=== PATIENT | female | born 1945 | race Caucasian/White ===

== ENCOUNTER 2017-12-08 08:42 | Inpatient (IN) ==
--- NOTE | 2017-12-08 09:38 | Emergency Department Note ---
Disposition Clinical Impression: Hip fracture Qualifiers: Encounter type: initial encounter Fracture type: closed Laterality: left Qualified Code(s): S72.002A - Fracture of unspecified part of neck of left femur , initial encounter for closed fracture Disposition: Admitted As Inpatient Condition: Fair Fall HPI - General Chief Complaint: ED Fall Stated Complaint: fall Time Seen by Provider: 12/08/17 08:48 Source: patient Mode of arrival: EMS Limitations: no limitations Nursing Notes Reviewed: Yes Vital Signs Reviewed: Yes - History of Present Illness HPI Narrative: 72 year old female presents with fall injury. Patient stated she has history of mild left leg weakness for a while. She was still able to walk without help. She was tripped and fell on left side hip 2 hours ago from standing position. Patient could not stand up after the accident. When ambulance came and moved her, she complained of severe left hip pain, and back pain. She also complained of some left knee pain as well. Patient denied hit her head. Denied dizziness or lost consciousness prior to the accident. Patient denied headache, neck pain, chest pain, abdominal pain. Denied incontinency over urinating or bowel movement. Pt Subjective Complaint: fall Onset (ago): hour(s) (2) Fall From: standing, from height (distance) Fall Witnessed: no Place Fall Occurred: home Loss of Consciousness: none Prolonged Down Time?: no Symptoms Prior to Fall: none Location of injury: hip Location of injury - extremities: Left: hip, knee Severity: severe Severity scale (1-10): 9 Quality: dull Associated symptoms (after fall): Reports: denies - Related Data Home Medications Medication Instructions Recorded Confirmed Alendronate Sodium 70 mg PO MO 12/08/17 12/08/17 Escitalopram [Lexapro] 20 mg PO QPM 12/08/17 12/08/17 Megestrol Acetate [Megace] 40 mg PO BID 12/08/17 12/08/17 Mirtazapine [Remeron] 15 mg PO HS 12/08/17 12/08/17 Multivit-Min/FA/Lycopen/Lutein 1 tab PO DAILY 12/08/17 12/08/17 [Centrum Silver Tablet] Ranitidine HCl [Heartburn Relief] 150 mg PO BID 12/08/17 12/08/17 Solifenacin Succinate [Vesicare] 5 mg PO DAILY 12/08/17 12/08/17 Previous Rx's Medication Instructions Recorded Cefdinir [Omnicef] 300 mg PO BID #4 capsule 12/12/17 Enoxaparin [Lovenox] 30 mg SQ Q12HCO #23 syringe 12/12/17 Gabapentin [Neurontin] 600 mg PO BID #10 tablet 12/12/17 HYDROcodone/Acet 5/325 mg [[place] 2 tab PO Q6HR PRN 5 Days #20 tablet 12/12/17 5-325 mg] Allergies Allergy/AdvReac Type Severity Reaction Status Date / Time meperidine [From Demerol] Allergy Hives Verified 12/08/17 11:18 Penicillins Allergy Hives Verified 12/08/17 11:18 milk AdvReac Gastrointestinal Uncoded 12/08/17 11:18 Upset Constitutional: Denies: fever, chills, weakness, weight change Eyes: Denies: eye pain, eye discharge, vision change ENT ED: Denies: ear pain, throat pain, dental pain, hearing loss, epistaxis, congestion, dysphagia Cardiovascular: Denies: chest pain, palpitations, dyspnea on exertion, edema, syncope Respiratory: Denies: cough, dyspnea, wheezes, hemoptysis, stridor Gastrointestinal: Denies: abdominal pain, nausea, vomiting, diarrhea, constipation, hematemesis, melena, hematochezia Genitourinary: Denies: dysuria, frequency, hematuria, discharge Musculoskeletal: Reports: back pain, arthralgia (Back pain, left hip pain, left and knee pain). Denies: neck pain, myalgia Integumentary: Denies: rash, abrasion, lesions Neurological: Denies: headache, weakness, numbness, paresthesias, confusion, abnormal gait, vertigo Psychiatric: Denies: anxiety, depression, suicidal thoughts, homicidal thoughts , auditory hallucinations, visual hallucinations Endocrine: Denies: fatigue Hematological/Lymphatic: Denies: easy bleeding, easy bruising Allergic/Immunologic: Denies: facial swelling, urticaria Fall PMH - Past Medical History Medical history: Reports: GERD, thyroid disease, other Surgical history: Reports: no surgical history Psychiatric history: Reports: depression, 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 - Social History Smoking Status: Never smoker Alcohol use: Reports: none Drug use: Reports: none Physical Exam - General Limitations: no limitations General appearance: alert - Head Head exam: atraumatic, normocephalic, normal inspection - Eye Eye exam: Present: normal appearance, PERRL, EOMI - Expanded Eye Exam Pupils: Left: reactive - ENT ENT exam: normal exam, normal oropharynx, mucous membranes moist - Expanded ENT Exam External ear exam: Present: normal external inspection Mouth exam: Present: normal external inspection Teeth exam: Present: normal inspection Throat exam: Present: normal inspection - Neck Neck exam: Present: normal inspection, full ROM, trachea midline. Absent: tenderness - Chest Chest inspection: Present: normal inspection, symmetric chest wall rise - Respiratory Respiratory exam: Present: normal lung sounds bilaterally. Absent: respiratory distress, wheezes - Cardiovascular Cardiovascular exam: Present: regular rate, normal rhythm, normal heart sounds - Abdominal Exam Abdominal exam: Present: soft, Non-Tender. Absent: tenderness, distention, guarding, rebound, rigidity - Extremities Exam Extremities exam: Present: normal inspection, full ROM. Absent: tenderness, pedal edema - Expanded Upper Extremity Exam Shoulder exam: Present: normal inspection, full ROM Arm exam: Present: normal inspection, full ROM Elbow exam: Present: normal inspection, full ROM Forearm/Wrist exam: Present: normal inspection, full ROM Hand exam: Present: normal inspection, full ROM Vascular exam: Normal: capillary refill, radial pulse - Expanded Lower Extremity Exam Hip/Pelvis exam: Present: normal inspection, tenderness (left hip limited of ROM and tender to palpation). Absent: full ROM Upper leg exam: Present: normal inspection. Absent: tenderness Knee exam: Present: normal inspection, full ROM Lower leg exam: Present: normal inspection, full ROM Ankle exam: Present: normal inspection, full ROM Foot/toe exam: Present: normal inspection, full ROM Neurovascular/Tendon exam: Present: normal capillary refill. Absent: motor deficit, sensory deficit, tendon deficit - Back Exam Back exam: Present: normal inspection, full ROM, tenderness (lumbar spine tender to palpation) - Neurological Exam Neurological exam: Present: alert, oriented X3 - Expanded Neurological Exam Patient oriented to: Present: person, place, time Coma Scale Eye Opening: Spontaneous Coma Scale Motor Response: Obeys Commands Coma Scale Verbal Response: Oriented Coma Scale Total: 15 - Psychiatric Psychiatric exam: Present: normal affect, normal mood - Skin Skin exam: Present: warm, dry, intact, normal color Course Vital Signs Temperature 98.6 F 12/08/17 08:44 Pulse Rate 79 12/08/17 08:44 Respiratory Rate 18 12/08/17 08:44 Blood Pressure 138/66 12/08/17 08:44 O2 Sat by Pulse Oximetry 91 12/08/17 08:44 Temperature 98.4 F 12/12/17 12:10 Pulse Rate 75 12/12/17 12:10 Respiratory Rate 16 12/12/17 12:10 Blood Pressure 130/68 12/12/17 12:10 O2 Sat by Pulse Oximetry 97 12/12/17 12:10 Oxygen Delivery Oxygen Delivery Nasal Cannula Fall - MDM Narrative Medical decision making narrative: 72 year old female with a history 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 Patient fell on her left hip from standing position. Patient was not able to stand up after accident. Physical exam: Left hip limited of range of motion, tender to palpation on lateral side, lumbar spine tender, left knee no limited of range of motion, mild to tender on anterior aspect. X-ray hip, knee, negative for fracture. Lumbar CT negative. MRI left hip indicated an acute fracture on greater trochanter. Discussed with orthopedics Dr. Bernal in the phone, suggest admit patient for pain control and Orthopedic consult in floor. - Lab Data Result diagrams: 12/09/17 03:52 12/09/17 03:52 - Radiology Data Radiology results reviewed: Yes I reviewed the patient's radiology results.
--- NOTE | 2017-12-08 11:28 | Emergency Department Note ---
Disposition Clinical Impression: Hip fracture Qualifiers: Encounter type: initial encounter Fracture type: closed Laterality: left Qualified Code(s): S72.002A - Fracture of unspecified part of neck of left femur , initial encounter for closed fracture Disposition: Admitted As Inpatient Condition: Fair General Adult HPI - General Chief complaint: ED Fall Stated complaint: fall Time Seen by Provider: 12/08/17 08:48 Source: patient Mode of arrival: EMS Limitations: no limitations - History of Present Illness Pain Scale: 9 - Related Data Home Medications Medication Instructions Recorded Confirmed Alendronate Sodium [Alendronate 70 mg PO MO 12/08/17 12/08/17 Sodium] Escitalopram [Lexapro] 20 mg PO QPM 12/08/17 12/08/17 Gabapentin [Neurontin] 600 mg PO BID 12/08/17 12/08/17 Megestrol Acetate [Megace] 40 mg PO BID 12/08/17 12/08/17 Mirtazapine [Remeron] 15 mg PO HS 12/08/17 12/08/17 Multivit-Min/FA/Lycopen/Lutein 1 tab PO DAILY 12/08/17 12/08/17 [Centrum Silver Tablet] Ranitidine HCl [Heartburn Relief] 150 mg PO BID 12/08/17 12/08/17 Solifenacin Succinate [Vesicare] 5 mg PO DAILY 12/08/17 12/08/17 clonazePAM [Klonopin] 0.5 mg PO DAILY PRN 12/08/17 12/08/17 Allergies Allergy/AdvReac Type Severity Reaction Status Date / Time meperidine [From Demerol] Allergy Hives Verified 12/08/17 11:18 Penicillins Allergy Hives Verified 12/08/17 11:18 milk AdvReac Gastrointestinal Uncoded 12/08/17 11:18 Upset Constitutional: Denies: fever, chills, weakness, weight change Eyes: Denies: eye pain, eye discharge, vision change ENT ED: Denies: ear pain, throat pain, dental pain, hearing loss, epistaxis, congestion, dysphagia Cardiovascular: Denies: chest pain, palpitations, dyspnea on exertion, edema, syncope Respiratory: Denies: cough, dyspnea, wheezes, hemoptysis, stridor Gastrointestinal: Denies: abdominal pain, nausea, vomiting, diarrhea, constipation, hematemesis, melena, hematochezia Genitourinary: Denies: dysuria, frequency, hematuria, discharge Musculoskeletal: Reports: back pain, arthralgia (Back pain, left hip pain, left and knee pain). Denies: neck pain, myalgia Integumentary: Denies: rash, abrasion, lesions Neurological: Denies: headache, weakness, numbness, paresthesias, confusion, abnormal gait, vertigo Psychiatric: Denies: anxiety, depression, suicidal thoughts, homicidal thoughts , auditory hallucinations, visual hallucinations Endocrine: Denies: fatigue Hematological/Lymphatic: Denies: easy bleeding, easy bruising Allergic/Immunologic: Denies: facial swelling, urticaria Past Medical History - Past Medical History Medical history: Reports: GERD, thyroid disease, other Surgical history: Reports: no surgical history Psychiatric history: Reports: depression, other 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 - Social History Smoking Status: Never smoker Smokeless Tobacco Status: No Alcohol use: Reports: none Drug use: Reports: none Physical Exam - General Limitations: no limitations General appearance: alert Course Vital Signs Temperature 98.6 F 12/08/17 08:44 Pulse Rate 79 12/08/17 08:44 Respiratory Rate 18 12/08/17 08:44 Blood Pressure 138/66 12/08/17 08:44 O2 Sat by Pulse Oximetry 91 12/08/17 08:44 Temperature 98.8 F 12/08/17 15:34 Pulse Rate 85 12/08/17 15:34 Respiratory Rate 16 12/08/17 15:34 Blood Pressure 134/57 12/08/17 15:34 O2 Sat by Pulse Oximetry 95 12/08/17 15:34 Oxygen Delivery Oxygen Delivery Nasal Cannula Medical Decision Making - Lab Data Result diagrams: 12/08/17 15:08 12/08/17 15:08 Attestation Statement - Attestation Attestation: I examined this patient and my medical decision-making was reviewed with the HEALTHCARE TECHNICIAN/PA/Advanced Practice Nurse/Resident Physician. I agree with the documented findings, disposition and treatment plan as described except to the extent set forth below. The patient does have left hip pain after falling. She said she did not have a syncopal episode and no loss of consciousness. No head trauma. Is not anticoagulated. X-ray of the left hip is negative so MRI scan will be done. [id number]
[2017-12-08] MEDS ORDERED: *HR* HYDROcodone/Acet 5/325 mg TABLET PO ONE (14:11)
[2017-12-08] MEDS ORDERED: 0.9 % Sodium Chloride 1,000 ML IVC SCH (14:45)
[2017-12-08] MEDS ORDERED: Naloxone 0.4 MG/ML INJ IVP PRN (14:45)
[2017-12-08] MEDS ORDERED: clonazePAM 0.5 MG TABLET PO PRN (14:49)
--- NOTE | 2017-12-08 14:55 | Internal Med History&Physical ---
Date of Encounter: 12/08/17 Time of Encounter: 15:00 Internal Medicine - H&P: HPI Chief complaint: Fall Admitted From: Home Plans for Post Hospital Care: Transfer Longterm Facility History of present illness: Ms. Srivastava is a 72 year old female presented to the emergency department after a fall. It was mechanical fall. Patient denied any dizziness no chest pain or shortness of breath no blurry vision no any symptoms before she fell. She felt that her left leg "gave out one of her and she suddenly fell. She did not hit her head and she was awake all the time. Patient had severe left hip pain and back pain and she came into the emergency department. Regular imaging MRI of the hip done and showed acute nondisplaced left hip fracture. Orthopedics was contacted and they will see the patient on consult. On my interviewing the patient she denied any chest pain or shortness of breath no headache no blurry vision no abdominal pain no changes in bowel movement. Past Med Surg Social Fam HX - Past Medical History Medical history: GERD, thyroid disease, other Additional medical history: IBS. bursitis. DDD lumbar. osteoporosis Psychiatric history: depression, other - Past Surgical History Surgical History: no surgical history Additional surgical history: PEG tube 2014 - Social History Smoking Status: Never smoker Smokeless Tobacco Status: No Alcohol use: none Drug use: none - Family History Mother Living Status: Father Living Status: Internal Medicine - H&P: Meds Alendronate Sodium [Alendronate Sodium] 70 mg PO MO 12/08/17 [History] Escitalopram [Lexapro] 20 mg PO QPM 12/08/17 [History] Gabapentin [Neurontin] 600 mg PO BID 12/08/17 [History] Megestrol Acetate [Megace] 40 mg PO BID 12/08/17 [History] Mirtazapine [Remeron] 15 mg PO HS 12/08/17 [History] Multivit-Min/FA/Lycopen/Lutein [Centrum Silver Tablet] 1 tab PO DAILY 12/08/17 [ History] Ranitidine HCl [Heartburn Relief] 150 mg PO BID 12/08/17 [History] Solifenacin Succinate [Vesicare] 5 mg PO DAILY 12/08/17 [History] clonazePAM [Klonopin] 0.5 mg PO DAILY PRN 12/08/17 [History] 3 Allergy/AdvReac Type Severity Reaction Status Date / Time meperidine [From Demerol] Allergy Hives Verified 12/08/17 11:18 Penicillins Allergy Hives Verified 12/08/17 11:18 milk AdvReac Gastrointestinal Uncoded 12/08/17 11:18 Upset All Systems PM: A 10-system review of systems was performed and is negative for pertinent findings except as documented above in the HPI. - Constitutional Vitals: Temp Pulse Resp BP Pulse Ox 98.6 F 79 18 138/66 91 12/08/17 08:44 12/08/17 08:44 12/08/17 08:44 12/08/17 08:44 12/08/17 08:44 - Head Head exam: Present: atraumatic, normocephalic - Eye Eye exam: Present: PERRL, conjuntiva pink, sclera anicteric Pupils: Present: PERRL - Neck Neck exam general surgery: Present: supple, trachea midline. Absent: lymphadenopathy - Respiratory Respiratory exam: Present: CTAB. Absent: accessory muscle use, rales, rhonchi, wheezes - Cardiovascular Cardiovascular exam: Present: RRR, +S1, +S2. Absent: diastolic murmur, gallop, rubs, systolic murmur - GI/Abdominal GI/Abdominal exam: Present: normal bowel sounds, soft, no peritoneal signs. Absent: distended, tenderness - Extremities Exam Additional comments: Limited range of motion left lower extremity - Neurological Exam Neurological exam: Present: CN II-XII intact, oriented X3, no focal deficits. Absent: pronater drift, facial droop, speech deficit - Skin Skin exam: Present: dry, intact - Assessment and plan (1) Closed left hip fracture Current Visit: Yes Status: Acute Assessment and plan: Patient will be admitted to general medical floor Will get basic labs for pre-op Patient has no cardiac history Orthopedics consult at and possibly going to surgery tomorrow. We will keep the patient nothing by mouth after midnight Monitor H&H post surgery Pain control Qualifiers: Qualified Code(s): S72.002A - Fracture of unspecified part of neck of left femur, initial encounter for closed fracture (2) DVT prophylaxis Current Visit: Yes Status: Acute Assessment and plan: With Lovenox subcutaneous, to be held before surgery - Time Spent With Patient Total time spent is greater than 50% in coordination of care (as documented) at patient's floor/unit and/or counseling patient:
[2017-12-08 15:16] LABS: Basophils % 0.2 %; Eosinophils # 0.1 K/mcL (0.0-0.6); Eosinophils % 1.4 %; Hematocrit 39.4 % (35.3-44.9); Hemoglobin 13.4 g/dL (11.5-15.4); Immature Granulocytes % 0.5 % (0-4); Lymphocytes # 1.3 K/mcL (0.6-4.6); Lymphocytes % 14.2 %; Mean Corpuscular Volume 88.3 fL (83.0-100.0); Mean Platelet Volume 9.6 fL (9.4-12.4); Monocytes # 0.8 K/mcL (0.0-1.3); Monocytes % 8.3 %; Neutrophils # 6.9 K/mcL (1.6-8.9); Platelet Count 191 K/mcL (140-400); Red Blood Count 4.46 M/mcL (3.82-4.97); Red Cell Distribution Width 13.2 % (11.5-14.5); Segmented Neutrophils % 75.4 %
[2017-12-08 15:38] LABS: BUN/Creatinine Ratio 29 (6-26); Blood Urea Nitrogen 15 mg/dL (8-23); Calcium 9.7 mg/dL (8.6-10.3); Carbon Dioxide 26 mEq/L (23-29); Chloride 110 mEq/L (98-107); Glucose 99 mg/dL (70-105); Osmolality,Calculated 291 (280-300); Sodium 140 mEq/L (136-145); eGFR For African Americans > 60 (> 60); eGFR For Non-African Americans > 60 (> 60)
--- NOTE | 2017-12-08 20:22 | Orthopedic Consult Note ---
Date of Encounter: 12/08/17 Time of Encounter: 20:14 History of Present Illness Chief complaint: Left hip pain HPI: Ms. Srivastava is a 72 year old female sustained a mechanical fall in her home and injured her left hip. She presented to [facility] were x- rays of the hip were unremarkable. X-rays of the knee were also performed. Lumbar spine CT scan was performed as well as an MRI of the left hip. The MRI revealed the presence of a fracture. Patient is now admitted for more definitive management. Patient denies any other injuries. Patient states that she has severe pain with walking. Denies neurovascular complaints. I reviewed the patient's past medical surgical history as well as reviewed all the components of her documented history and physical as well as emergency room notes. Physical examination reveals no evidence of leg length discrepancy no excessive rotational deformities. The left hip is mildly tender with internal and external rotation. There is significant tenderness to palpation over the lateral aspect of the greater trochanter. I reviewed multiple studies. AP and lateral views of the pelvis and the left hip show moderate bilateral hip arthritis without evidence of an acute fracture. Nonweightbearing x-rays of the left knee are reviewed. These reveal some medial narrowing and some chondrocalcinosis of the medial compartment. There are Rain growth arrest lines in both the tibia and the femur consistent with's previous illness in the distant past. CT scan of the lumbar spine reveals marked chronic T12 deformity consistent with a burst-type fracture without evidence of acute changes. The MRI of the left hip is quite impressive in that it shows a very significant though nondisplaced intertrochanteric type fracture. This appears extending from the greater trochanter into the region of the lesser trochanter but does not appear to show penetration all the way across the proximal femur. Impression: Nondisplaced intertrochanteric fracture left hip Plans: I long discussion with the patient regarding the fracture and the treatment options. This would be either nonoperative or surgical intervention. Nonoperative intervention would require limiting her weightbearing and utilizing a walker second time worker until we see some evidence that the fracture is healing and her pain has diminished. She understands that the area of the bone is weak and another injury could displace his fracture. Surgical option would be to proceed with stabilization utilizing a trochanteric type nail. This would allow her to begin immediate weightbearing ambulation and should address her pain rather quickly. We discussed the surgical procedure as well as potential risks and complications including but not limited to bleeding infection blood clots nerve injury stiffness malunion nonunion as well as leg length and rotational deformities. Patient denied discussed the options and the surgery as noted. She has requested that we proceed with surgical intervention. She signed informed consent for the surgical procedure. We will proceed tomorrow when operating time is available. Thank you very much for allowing me to see care for Mrs. Singh. Sincerely, Poli Bernal,DO Past Med Surg Social Fam HX - Past Medical History Medical history: GERD, thyroid disease, other Additional medical history: IBS. bursitis. DDD lumbar. osteoporosis Psychiatric history: depression, other - Past Surgical History Surgical History: no surgical history Additional surgical history: PEG tube 2014 - Social History Smoking Status: Never smoker Smokeless Tobacco Status: No Alcohol use: none Drug use: none - Family History Mother Living Status: Father Living Status: Medications and Allergies Alendronate Sodium [Alendronate Sodium] 70 mg PO MO 12/08/17 [History] Escitalopram [Lexapro] 20 mg PO QPM 12/08/17 [History] Gabapentin [Neurontin] 600 mg PO BID 12/08/17 [History] Megestrol Acetate [Megace] 40 mg PO BID 12/08/17 [History] Mirtazapine [Remeron] 15 mg PO HS 12/08/17 [History] Multivit-Min/FA/Lycopen/Lutein [Centrum Silver Tablet] 1 tab PO DAILY 12/08/17 [ History] Ranitidine HCl [Heartburn Relief] 150 mg PO BID 12/08/17 [History] Solifenacin Succinate [Vesicare] 5 mg PO DAILY 12/08/17 [History] clonazePAM [Klonopin] 0.5 mg PO DAILY PRN 12/08/17 [History] 3 Allergy/AdvReac Type Severity Reaction Status Date / Time meperidine [From Demerol] Allergy Hives Verified 12/08/17 11:18 Penicillins Allergy Hives Verified 12/08/17 11:18 milk AdvReac Gastrointestinal Uncoded 12/08/17 11:18 Upset All Systems Reviewed: The remainder of the systems were reviewed and are negative Physical Exam - Constitutional Vitals: Temp Pulse Resp BP Pulse Ox 98.1 F 75 16 116/67 97 12/08/17 18:50 12/08/17 18:50 12/08/17 18:50 12/08/17 18:50 12/08/17 18:50 Results - Labs Result Diagrams: 12/08/17 15:08 12/08/17 15:08 Labs: Abnormal lab results Chloride 110 mEq/L (98-107) H 12/08/17 15:08 Creatinine 0.51 mg/dL (0.60-1.20) L 12/08/17 15:08 BUN/Creatinine Ratio 29 (6-26) H 12/08/17 15:08 H & H 12/08/17 Range/Units 15:08 Hgb 13.4 (11.5-15.4) g/dL Hct 39.4 (35.3-44.9) % All other labs normal. - Diagnostic results Hip AP/Lateral x-ray: image reviewed Hip MRI: image reviewed Knee x-ray: image reviewed CT Scan - lumbar: image reviewed Consult Discharge Plan - Plan Referrals: Srini Herrera MD [Primary Care Provider] -
[2017-12-08] MEDS ORDERED: *HR* HYDROcodone/Acet 5/325 mg TABLET PO PRN (20:25)
[2017-12-08] MEDS ORDERED: *HR* Morphine 2 MG/ML SYRINGE IVP PRN (20:25)
[2017-12-08] MEDS: Gabapentin 300 MG CAPSULE PO SCH (20:53)
[2017-12-08] MEDS: Famotidine 20 MG TABLET PO SCH (20:53)
[2017-12-08] MEDS ORDERED: Mirtazapine 15 MG TABLET PO SCH (21:00)
[2017-12-09 00:51] LABS: Bilirubin,Urine Negative (Negative); Blood,Urine Negative (Negative); Color,Urine Yellow (Yellow); Glucose,Urine (UA) Normal (Normal); Ketones,Urine Trace mg/dL (Negative); Leukocyte Esterase,Urine Moderate (Negative); Nitrite,Urine Negative (Negative); PH,Urine 7.5 pH Units (5.0-8.0); Protein,Urine Trace mg/dL (Neg-Trace); Specific Gravity,Urine 1.026 (1.010-1.025); Urobilinogen,Urine Normal (Normal)
[2017-12-09 00:53] LABS: Bacteria,Urine Many per hpf (None-Few); Hyaline Casts,Urine None Seen per lpf (None-Few); RBC,Urine 0-3 per hpf (0-3); Squamous Epithelial Cell,Urine Few per lpf (None-Few); WBC,Urine 30-50 per hpf (0-3)
[2017-12-09 01:02] LABS: Clarity,Urine Hazy (Clear)
[2017-12-09 04:23] LABS: Basophils % 0.5 %; Eosinophils # 0.5 K/mcL (0.0-0.6); Eosinophils % 7.4 %; Hematocrit 37.3 % (35.3-44.9); Hemoglobin 12.4 g/dL (11.5-15.4); Immature Granulocytes % 0.5 % (0-4); Lymphocytes # 1.4 K/mcL (0.6-4.6); Lymphocytes % 21.1 %; Mean Corpuscular HGB Conc 33.2 g/dL (31.6-35.5); Mean Corpuscular Hemoglobin 29.9 pg (28.0-33.3); Mean Corpuscular Volume 89.9 fL (83.0-100.0); Monocytes # 0.6 K/mcL (0.0-1.3); Monocytes % 8.7 %; Neutrophils # 4.1 K/mcL (1.6-8.9); Platelet Count 183 K/mcL (140-400); Red Blood Count 4.15 M/mcL (3.82-4.97); Red Cell Distribution Width 13.4 % (11.5-14.5); Segmented Neutrophils % 61.8 %
[2017-12-09 04:36] LABS: BUN/Creatinine Ratio 27 (6-26); Blood Urea Nitrogen 18 mg/dL (8-23); Calcium 9.6 mg/dL (8.6-10.3); Carbon Dioxide 26 mEq/L (23-29); Chloride 108 mEq/L (98-107); Glucose 101 mg/dL (70-105); Magnesium 2.1 mg/dL (1.6-2.6); Osmolality,Calculated 290 (280-300); Potassium 4.1 mEq/L (3.5-5.1); Sodium 139 mEq/L (136-145); eGFR For African Americans > 60 (> 60); eGFR For Non-African Americans > 60 (> 60)
[2017-12-09] MEDS ORDERED: *HR* Enoxaparin 40 MG/0.4 ML SYRINGE SQ SCH (06:00)
[2017-12-09] MEDS ORDERED: Multivit/Ca/Min/Fe/FA 1 TAB TABLET PO SCH (09:00)
[2017-12-09] MEDS: Gabapentin 300 MG CAPSULE PO SCH ×2 (09:32→20:46)
[2017-12-09] MEDS: Famotidine 20 MG TABLET PO SCH ×2 (09:32→20:45)
[2017-12-09] MEDS ORDERED: cefTRIAXone 1,000 MG in Water for inj. (sterile) 20 ML 10 ML IVPB SCH (10:14)
[2017-12-09] MEDS ORDERED: Clindamycin 600 MG/50 ML 600 MG/50 ML IV.SOLN IVPB ONE (10:25)
--- NOTE | 2017-12-09 10:38 | Internal Med Progress Note ---
Date of Encounter: 12/09/17 Time of Encounter: 10:33 - Assessment and plan (1) Closed left hip fracture Current Visit: Yes Status: Acute Assessment and plan: ortho was consulted, plan OR today pre-op EKG Qualifiers: Encounter type: initial encounter Qualified Code(s): S72.002A - Fracture of unspecified part of neck of left femur, initial encounter for closed fracture (2) Depression with anxiety Current Visit: Yes Status: Acute Assessment and plan: conitnue home meds (3) GERD without esophagitis Current Visit: Yes Status: Acute Assessment and plan: contineu pepcid (4) UTI (urinary tract infection) Current Visit: Yes Status: Acute Assessment and plan: start ceftriaxone Qualifiers: Urinary tract infection type: acute cystitis Hematuria presence: without hematuria Qualified Code(s): N30.00 - Acute cystitis without hematuria - Time Spent With Patient Total time spent is greater than 50% in coordination of care (as documented) at patient's floor/unit and/or counseling patient: Greater than 35 minutes - Subjective Interval history: Ms. Srivastava is a 72 year old female who has no significant medical hx presented to the emergency department after a fall. It was mechanical fall. Patient denied any dizziness no chest pain or shortness of breath no blurry vision no any symptoms before she fell. She felt that her left leg "gave out one of her and she suddenly fell. Regular imaging MRI of the hip done and showed acute nondisplaced left hip fracture. Orthopedics was contacted and they will see the patient on consult. Patient is going to have surgery. Patient denies hx of CAD, DE, CKD, DM, CVA, she has Mets>4 before fall. Her RCRI score "0". Patient is considered as low risk for periop cardiovascular events. check EKG for her age UTI will give IV ceftriasone - Constitutional Vitals: Temp Pulse Resp BP Pulse Ox 98.2 F 79 16 146/74 93 12/09/17 06:49 12/09/17 06:49 12/09/17 06:49 12/09/17 06:49 12/09/17 09:41 General appearance: Present: A&O X 3, pleasant Exam: CONSTITUTIONAL: patient appears as an age appropriate female in in no acute distress. EYES Clear sclerae, bilateral pupils are equal, reactive to light. EMOI. RESPIRATORY: No accessory muscle use, bilateral clear to auscultation, no wheezing, no crackles/rales. CARDIOVASCULAR: Regular heart rate, normal S1 and S2, no murmurs GASTROINTESTINAL: bowel sounds present, soft, no tenderness. MUSCULOSKELETAL: Joints in normal range of motion, no clubbing, no edema, no cyanosis. Bilateral peripheral pulses 2+. NEUROLOGIC: CN II to XII are grossly intact, no focal neurological deficit. Internal Medicine: Result - Labs CBC & Chem 7: 12/09/17 03:52 12/09/17 03:52 Labs: Short CBC 12/08/17 12/09/17 Range/Units 15:08 03:52 WBC 9.2 6.7 (4.3-11.1) K/mcL Hgb 13.4 12.4 (11.5-15.4) g/dL Hct 39.4 37.3 (35.3-44.9) % Plt Count 191 183 (140-400) K/mcL Neutrophils # 6.9 4.1 (1.6-8.9) K/mcL BMP 12/08/17 12/09/17 15:08 03:52 Sodium 140 139 Potassium 4.0 4.1 Chloride 110 H 108 H Carbon Dioxide 26 26 BUN 15 18 Creatinine 0.51 L 0.67 Glucose 99 101 Calcium 9.7 9.6 Urine 12/09/17 Range/Units 00:41 Urine Color Yellow (Yellow) Urine Clarity Hazy A (Clear) Urine pH 7.5 (5.0-8.0) pH Units Ur Specific [place] 1.026 H (1.010-1.025) Urine Protein Trace (Neg-Trace) mg/dL Urine Glucose (UA) Normal (Normal) mg/dL - VTE Documentation of Mechanical Device: Graduated compression elastic hosiery Consult Discharge Plan - Plan Referrals: Srini Herrera MD [Primary Care Provider] - Poli Bernal DO [Non-Partnered Physician] -
[2017-12-09] MEDS ORDERED: *HR* Propofol 200 MG/20 ML VIAL IVP ONE (12:48)
[2017-12-09] MEDS ORDERED: *HR* FentaNYL (PF) 100 MCG/2 ML VIAL ONE ×2 (12:48→15:01)
--- NOTE | 2017-12-09 13:39 | Anesthesia Evaluation PreOp ---
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: Denies Any Significant HX Other Medical History: Thyroid, GERD Anesthesia History: No Prior Anesthetic Complications : No Alcohol Use: none Drug use: none Medications and Allergies Alendronate Sodium [Alendronate Sodium] 70 mg PO MO 12/08/17 [History] Escitalopram [Lexapro] 20 mg PO QPM 12/08/17 [History] Gabapentin [Neurontin] 600 mg PO BID 12/08/17 [History] Megestrol Acetate [Megace] 40 mg PO BID 12/08/17 [History] Mirtazapine [Remeron] 15 mg PO HS 12/08/17 [History] Multivit-Min/FA/Lycopen/Lutein [Centrum Silver Tablet] 1 tab PO DAILY 12/08/17 [ History] Ranitidine HCl [Heartburn Relief] 150 mg PO BID 12/08/17 [History] Solifenacin Succinate [Vesicare] 5 mg PO DAILY 12/08/17 [History] clonazePAM [Klonopin] 0.5 mg PO DAILY PRN 12/08/17 [History] 3 Allergy/AdvReac Type Severity Reaction Status Date / Time meperidine [From Demerol] Allergy Hives Verified 12/08/17 11:18 Penicillins Allergy Hives Verified 12/08/17 11:18 milk AdvReac Gastrointestinal Uncoded 12/08/17 11:18 Upset - Meds/Allergy Pre-op Review Medications Reviewed: Yes Allergies Reviewed: Yes Beta Blockers on Current Med List: No Anesthesia Results - Labs 12/09/17 03:52 12/09/17 03:52 - Imaging EKG: report reviewed (Sinus Tach) Additional studies: Stress Test 2016 negative for ischemia, EF 70% Anesthesia Exam Vital Signs/O2 Sat/Glucose, Most Current Temp Pulse Resp BP Pulse Ox 12/09/17 11:25 99.0 F 80 18 148/73 94 12/09/17 09:41 93 Height: 5'4 Weight: 139 lbs NPO (# of Hours): MN Pain Scale: 2 - HEENT Pupil (Motor): Pupils equal, EOMI Mallampati: II Teeth: Normal Oral Opening: Greater than 3 - WEB METHODS DEVELOPER LOC: Oriented WEB METHODS DEVELOPER Motor: Normal RUE, Normal LUE, Normal RLE, Normal LLE, Normal Face WEB METHODS DEVELOPER Sensory: Normal: RUE, LUE, RLE, LLE, Face - Cardiac Rhythm: Regular Murmur: None JVD: No Carotid Bruit: No - Pulmonary Breath Sounds: bilateral Clear Respiratory Effort: Symmetrical Anesthesia Assess/Plan ASA Score: 2 Modified [place] Scale for Level of Consciousness: Cooperative, oriented, and tranquil Anesthetic Plan: General Monitoring Plan: Standard Monitors Recovery Plan: PACU (Discussed GA, agrees to proceed)
[2017-12-09] MEDS ORDERED: Acetaminophen IV 1,000 MG/100 ML INFUS..BTL ONE (13:44)
[2017-12-09] MEDS ORDERED: Famotidine 20 MG/2 ML VIAL ONE (13:44)
[2017-12-09] MEDS ORDERED: *HR* PHENYLEPHRINE 1,000 MCG/10 ML SYRINGE IVP ONE (14:54)
[2017-12-09] MEDS ORDERED: Dexamethasone 4 MG/ML VIAL ONE (15:03)
[2017-12-09] MEDS ORDERED: Ondansetron 4 MG/2 ML VIAL ONE (15:03)
[2017-12-09] MEDS ORDERED: Ketorolac 30 MG/ML VIAL ONE (15:51)
--- NOTE | 2017-12-09 17:03 | Anesthesia Evaluation Post Op ---
Date of Encounter: 12/09/17 Time of Encounter: 17:05 - Vital Signs Vital Signs: Vital Signs/O2 Sat/Glucose, Most Current Temp Pulse Resp BP Pulse Ox 12/09/17 16:55 78 16 127/67 92 12/09/17 16:45 97.3 F L 84 16 140/72 96 12/09/17 16:35 73 14 120/66 97 12/09/17 16:25 75 20 143/99 98 12/09/17 16:15 97.1 F L 74 12 109/60 97 - Lungs Lungs: Clear Ascult./Percussion - Airway Airway: Non-obstructed - Cardiovascular Regular Rate - Mental Status Mental Status: Alert & Oriented, Answers Appropriately - Pain Pain Scale: 1 - Nausea Vomiting Nausea Vomiting: Not Present - Hydration Hydration: Ice chips - Discharge PostOp Status: Transfer Patient to floor
[2017-12-09] MEDS ORDERED: 0.9 % Sodium Chloride 1,000 ML IVC SCH ×2 (17:15→20:36)
[2017-12-09] MEDS ORDERED: clonazePAM 0.5 MG TABLET PO PRN (17:15)
[2017-12-09] MEDS ORDERED: Naloxone 0.4 MG/ML INJ IVP PRN (17:15)
[2017-12-09] MEDS ORDERED: *HR* Morphine 2 MG/ML SYRINGE IVP PRN (17:15)
--- NOTE | 2017-12-09 17:19 | Operative Note ---
Date of procedure: 12/09/17 Pre-op diagnosis: Intertrochanteric fracture left hip Post-op diagnosis: same Procedure: 1. Intramedullary nailing left hip 2. Fluoroscopic guidance for IM nailing left hip Implants: Synthes 11 mm x 170 mm x 130 degree angle TFNA with a 85 mm x 11 mm helical blade and a 32 mm x 5.0 mm distal locking screw Anesthesia: TAYLOR Surgeon: Poli Bernal Was there an virtual customer assistant present: No Estimated blood loss (cc): 150 Specimen: None Condition: stable Disposition: PACU Procedure in Detail: Gross findings: Preoperative x-rays were relatively unremarkable. There was some hip arthritis. Preoperative MRI revealed an intertrochanteric type fracture with extension from the greater trochanter over to the region of the lesser trochanter without obvious cortical disruption medial. A Synthes TFNA was placed without complicating features. Fluoroscopy was used to verify placement of the implant. Procedure: Patient was taken to the operating room and while on the hospital bed was administered a general anesthesia. Patient was then transferred to the fracture table. Left lower extremity was placed in longitudinal traction right lower extremity was positioned out of harm's way and the well leg funk. The hip was slightly abducted to make insertion easier. Hip position was verified with fluoroscopy. Hip was now prepped and draped in normal standard fashion for surgery. Incision was made above the level of the trochanter. Dissection was carried through the adipose tissue down the level of the tensor fascia dillon which was split. Tip of the trochanter was identified and a guidewire was placed into the femur. The coring type reamers then used to open up the trochanter. The selected nail was placed on the insertion jig. It was then passed through the opening in the trochanter and passed distally down the canal. Position of the implant was verified with fluoroscopy. The implant was placed into appropriate position. This is followed by making a second incision to place the 130 degree insertion guide for the helical blade. A guide pin was again placed into a central position on the femoral head in both AP and lateral views. Length was measured and a 85 was selected. Head and neck were then reamed. Helical blade was then placed over top of the guidewire and impacted solidly into position. The blade was then locked proximally and the fracture was then compressed. At this time the insertion jig for the blade was removed and the drill guide for the distal locking screw was placed. Drill hole was made and measured. This distal locking screw was then placed. Insertion jig was then removed. Final fluoroscopic views are taken in multiple planes verifying excellent position of the implant without complicating features. Wounds then irrigated and closed with 0 undyed Vicryl in the deep tissue followed by 2-0 undyed Vicryl placed knee medius obtained his tissue and then skin approximation with a running septic her stitches of 30 strata fix followed by pernio skin glue. A biocclusive waffle foam dressing was then applied. Patient was then transferred from the operating table hospital bed and then transported to the postanesthesia care unit in stable and satisfactory condition. All sponge and needle evidence for counts are correct. No specimens are sent for pathology.
[2017-12-09] MEDS: *HR* HYDROcodone/Acet 5/325 mg TABLET PO PRN (17:37)
[2017-12-09] MEDS: Mirtazapine 15 MG TABLET PO SCH (20:45)
[2017-12-09] MEDS: Clindamycin 600 MG/50 ML 600 MG/50 ML IV.SOLN IVPB SCH (23:20)
[2017-12-10] MEDS: Gabapentin 300 MG CAPSULE PO SCH ×2 (07:32→20:44)
[2017-12-10] MEDS: Clindamycin 600 MG/50 ML 600 MG/50 ML IV.SOLN IVPB SCH (07:32)
[2017-12-10] MEDS: Famotidine 20 MG TABLET PO SCH ×2 (07:32→20:44)
[2017-12-10] MEDS: Multivit/Ca/Min/Fe/FA 1 TAB TABLET PO SCH (07:33)
[2017-12-10] MEDS: *HR* HYDROcodone/Acet 5/325 mg TABLET PO PRN ×2 (07:35→20:48)
[2017-12-10] MEDS: cefTRIAXone 1,000 MG in Water for inj. (sterile) 20 ML 10 ML IVPB SCH (08:53)
[2017-12-10] MEDS ORDERED: *HR* Morphine 2 MG/ML SYRINGE IVP PRN (12:12)
--- NOTE | 2017-12-10 14:02 | Internal Med Progress Note ---
Date of Encounter: 12/10/17 Time of Encounter: 13:59 - Assessment and plan (1) Closed left hip fracture Current Visit: Yes Status: Acute Assessment and plan: Intertrochanteric fracture left hip, s/p Intramedullary nailing left hip on consult pT, OT, for rehab Qualifiers: Encounter type: initial encounter Qualified Code(s): S72.002A - Fracture of unspecified part of neck of left femur, initial encounter for closed fracture (2) Depression with anxiety Current Visit: Yes Status: Chronic Assessment and plan: conitnue home meds (3) GERD without esophagitis Current Visit: Yes Status: Chronic Assessment and plan: continue home meds pepcid (4) UTI (urinary tract infection) Current Visit: Yes Status: Acute Assessment and plan: on ceftriaxone Qualifiers: Urinary tract infection type: acute cystitis Hematuria presence: without hematuria Qualified Code(s): N30.00 - Acute cystitis without hematuria - Time Spent With Patient Total time spent is greater than 50% in coordination of care (as documented) at patient's floor/unit and/or counseling patient: - Subjective Interval history: Ms. Srivastava is a 72 year old female who has no significant medical hx presented to the emergency department after a fall. It was mechanical fall. Patient denied any dizziness no chest pain or shortness of breath no blurry vision no any symptoms before she fell. She felt that her left leg "gave out one of her and she suddenly fell. Regular imaging MRI of the hip done and showed acute nondisplaced left hip fracture. Orthopedics was contacted and they will see the patient on consult. Patient is going to have surgery. Patient denies hx of CAD, HI, CKD, DM, CVA, she has Mets>4 before fall. Her RCRI score "0". Patient is considered as low risk for periop cardiovascular events. 1. Intertrochanteric fracture left hip, s/p Intramedullary nailing left hip on 12/09 2. UTI on IV ceftriaxone, urine culture growing gram positive cocci - Constitutional Vitals: Temp Pulse Resp BP Pulse Ox 97.7 F 79 18 146/90 94 12/10/17 11:39 12/10/17 11:39 12/10/17 11:39 12/10/17 11:39 12/10/17 11:39 General appearance: Present: A&O X 3, pleasant Exam: CONSTITUTIONAL: patient appears as an age appropriate female in no acute distress. EYES Clear sclerae, bilateral pupils are equal, reactive to light. EMOI. RESPIRATORY: No accessory muscle use, bilateral clear to auscultation, no wheezing, no crackles/rales. CARDIOVASCULAR: Regular heart rate, normal S1 and S2, no murmurs GASTROINTESTINAL: bowel sounds present, soft, no tenderness. MUSCULOSKELETAL: Joints in normal range of motion, no clubbing, no edema, no cyanosis. Bilateral peripheral pulses 2+. NEUROLOGIC: CN II to XII are grossly intact, no focal neurological deficit. Internal Medicine: Result - Labs CBC & Chem 7: 12/09/17 03:52 12/09/17 03:52 Labs: Urine 12/09/17 Range/Units 00:41 Urine Color Yellow (Yellow) Urine Clarity Hazy A (Clear) Urine pH 7.5 (5.0-8.0) pH Units Ur Specific [place] 1.026 H (1.010-1.025) Urine Protein Trace (Neg-Trace) mg/dL Urine Glucose (UA) Normal (Normal) mg/dL - Impressions Impressions Fluoroscopy 12/09/17 10:23 IMPRESSION: Intraprocedural fluoroscopic spot images as above. See separate procedure report for more information. D/ / 12/09/2017 17:39:55 Jerel Guardado MD / tamra Interpreting Provider: Jerel Guardado MD - VTE Documentation of Mechanical Device: Venous foot pump, device Consult Discharge Plan - Plan Referrals: Srini Herrera MD [Primary Care Provider] - Poli Bernal DO [Non-Partnered Physician] -
[2017-12-10] MEDS: *HR* Enoxaparin 30 MG/0.3 ML SYRINGE SQ SCH (16:21)
--- NOTE | 2017-12-10 16:47 | Orthopedics Progress Note ---
Date of Encounter: 12/10/17 Time of Encounter: 16:47 Subjective Principal diagnosis: Intertrochanteric fracture left hip Interval history: 12/10/2017. Patient is postop day #1 from intramedullary nailing of an intertrochanteric fracture left hip. Patient states the hip feels better than before surgery. Patient has had some limited therapy today. Vital signs are stable. Patient is afebrile. Incisions are dry without any drainage on the waffle foam dressings. Neurovascular exam is intact. Impression: POD #1 IM nailing left hip Recommendation: Patient can be weightbearing as tolerated. With intact dressings patient can shower. rn social services for discharge planning. Patient may need short-term rehabilitation stay prior to going home. Objective Vital signs: Vital Signs Temp Pulse Resp BP Pulse Ox 12/10/17 15:39 98.5 F 75 16 105/58 97 12/10/17 11:39 97.7 F 79 18 146/90 94 12/10/17 06:58 98.3 F 86 18 127/66 95 12/10/17 03:21 97.5 F L 83 17 146/71 94 12/09/17 23:34 94 12/09/17 23:28 97.8 F 82 14 144/73 91 12/09/17 20:11 97.8 F 12 114/70 95 12/09/17 20:10 95 12/09/17 19:05 97.6 F 81 12 107/72 94 12/09/17 19:04 97.5 F L 77 17 101/66 94 12/09/17 18:21 80 16 134/78 94 12/09/17 17:49 98.2 F 83 14 141/67 93 12/09/17 17:24 97.5 F L 80 16 146/80 93 12/09/17 17:05 97.6 F 80 16 123/71 93 12/09/17 16:55 78 16 127/67 92 12/09/17 16:45 97.3 F L 84 16 140/72 96 Intake and Output 12/10/17 12/10/17 12/10/17 07:59 15:59 23:59 Intake Total 250 / 250 60 / 60 Balance 250 / 250 60 / 60 Intake: IV Fluids 50 / 50 60 / 60 Cleocin Premix 600 MG/50 ML 600 50 / 50 50 / 50 mg In 50 ml @ 50 mls/hr IVPB Q8HR [facility] Rx#:[id number] Rocephin 1,000 MG In Water for inj. (sterile) 10 ML @ 600 mls/ hr IVPB Q24H [facility] Rx#:[id number] Oral 200 / 200 Other: Meal Lunch Percent of Meal Consumed 75% # Urine Diapers 2 1 - Labs CBC & BMP: 12/09/17 03:52 12/09/17 03:52 Labs: Abnormal lab results Chloride 108 mEq/L (98-107) H 12/09/17 03:52 BUN/Creatinine Ratio 27 (6-26) H 12/09/17 03:52 Urine Clarity Hazy (Clear) A 12/09/17 00:41 Ur Specific [place] 1.026 (1.010-1.025) H 12/09/17 00:41 Urine Ketones Trace mg/dL (Negative) H 18 00:41 Ur Leukocyte Esterase Moderate (Negative) H 12/09/17 00:41 Urine Microscopic WBC 30-50 per hpf (0-3) H 18 00:41 Urine Bacteria Many per hpf (None-Few) H 18 00:41 Ur Culture Indicated? YES (NO) A 12/09/17 00:41 - VTE Documentation of Mechanical Device: Venous foot pump, device Consult Discharge Plan - Plan Referrals: Srini Herrera MD [Primary Care Provider] - Poli Bernal DO [Non-Partnered Physician] -
[2017-12-10] MEDS: Mirtazapine 15 MG TABLET PO SCH (20:45)
[2017-12-11] MEDS: *HR* Enoxaparin 30 MG/0.3 ML SYRINGE SQ SCH ×2 (05:13→18:24)
[2017-12-11] MEDS: *HR* HYDROcodone/Acet 5/325 mg TABLET PO PRN ×2 (05:13→13:15)
--- NOTE | 2017-12-11 07:02 | Electrocardiograph Report ---
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
[2017-12-11] MEDS: cefTRIAXone 1,000 MG in Water for inj. (sterile) 20 ML 10 ML IVPB SCH (08:25)
[2017-12-11] MEDS: Multivit/Ca/Min/Fe/FA 1 TAB TABLET PO SCH (08:27)
[2017-12-11] MEDS: Gabapentin 300 MG CAPSULE PO SCH ×2 (08:27→20:10)
[2017-12-11] MEDS: Famotidine 20 MG TABLET PO SCH ×2 (08:28→20:10)
[2017-12-11] MEDS ORDERED: *HR* Morphine 2 MG/ML SYRINGE IVP PRN (10:45)
--- NOTE | 2017-12-11 11:10 | Internal Med Progress Note ---
Date of Encounter: 12/11/17 Time of Encounter: 11:00 - Assessment and plan (1) Closed left hip fracture Current Visit: Yes Status: Acute Assessment and plan: Intertrochanteric fracture left hip, s/p Intramedullary nailing left hip on . Plan for d/c to ECF. social work following Qualifiers: Encounter type: initial encounter Qualified Code(s): S72.002A - Fracture of unspecified part of neck of left femur, initial encounter for closed fracture (2) Depression with anxiety Current Visit: Yes Status: Chronic Assessment and plan: conitnue home meds (3) GERD without esophagitis Current Visit: Yes Status: Chronic Assessment and plan: continue home meds pepcid (4) UTI (urinary tract infection) Current Visit: Yes Status: Acute Assessment and plan: on ceftriaxone Qualifiers: Urinary tract infection type: acute cystitis Hematuria presence: without hematuria Qualified Code(s): N30.00 - Acute cystitis without hematuria (5) DVT prophylaxis Current Visit: Yes Status: Acute Assessment and plan: On lovenox - Time Spent With Patient Total time spent is greater than 50% in coordination of care (as documented) at patient's floor/unit and/or counseling patient: - Subjective Interval history: No acute events overnight - Constitutional Vitals: Temp Pulse Resp BP Pulse Ox 98.3 F 81 18 135/76 94 12/11/17 07:00 12/11/17 07:00 12/11/17 07:00 12/11/17 07:00 12/11/17 08:31 General appearance: Present: A&O X 3, pleasant - Head Head exam: Present: atraumatic, normocephalic - Eye Eye exam: Present: PERRL, conjuntiva pink, sclera anicteric Pupils: Present: PERRL - Neck Neck exam general surgery: Present: supple, trachea midline. Absent: lymphadenopathy - Respiratory Respiratory exam: Present: CTAB. Absent: accessory muscle use, rales, rhonchi, wheezes - Cardiovascular Cardiovascular exam: Present: RRR, +S1, +S2. Absent: diastolic murmur, gallop, rubs, systolic murmur - GI/Abdominal GI/Abdominal exam: Present: normal bowel sounds, soft, no peritoneal signs. Absent: distended, tenderness - Extremities Exam Extremities exam: Present: warm, radial pulses palpable and symmetrical. Absent : calf tenderness, cyanotic, pedal edema - Neurological Exam Neurological exam: Present: CN II-XII intact, oriented X3, no focal deficits. Absent: pronater drift, facial droop, speech deficit - Skin Skin exam: Present: dry, intact Internal Medicine: Result - Labs CBC & Chem 7: 12/09/17 03:52 12/09/17 03:52 - VTE Documentation of Mechanical Device: Intermittent pneumatic compression device Consult Discharge Plan - Plan Referrals: Srini Herrera MD [Primary Care Provider] - Poli Bernal DO [Non-Partnered Physician] -
[2017-12-11] MEDS ORDERED: NON-FORMULARY MEDICATION 1 EACH EACH (Alendronate Sodium [Alendronate Sodium] 70 MG) PO SCH (14:49)
[2017-12-11] MEDS: Mirtazapine 15 MG TABLET PO SCH (20:10)
[2017-12-12] MEDS: *HR* Enoxaparin 30 MG/0.3 ML SYRINGE SQ SCH (04:51)
[2017-12-12] MEDS: *HR* HYDROcodone/Acet 5/325 mg TABLET PO PRN (09:22)
[2017-12-12] MEDS: Gabapentin 300 MG CAPSULE PO SCH (09:23)
[2017-12-12] MEDS: Multivit/Ca/Min/Fe/FA 1 TAB TABLET PO SCH (09:24)
[2017-12-12] MEDS: Famotidine 20 MG TABLET PO SCH (09:24)
[2017-12-12] MEDS: cefTRIAXone 1,000 MG in Water for inj. (sterile) 20 ML 10 ML IVPB SCH (09:24)
[2017-12-12 12:15] VITALS: BP 130/68
--- NOTE | 2017-12-12 13:29 | Discharge Summary ---
- NOTES TO OUTPATIENT PROVIDER Notes to Outpatient Provider: left hip fractire s/p nailing; on s.c Lovenox for 2 weeks for DVT prophylaxis; Orders not resulted at time of discharge: Pending orders 12/09/17 10:24 XR hip complete LT [XR] Routine Date of Encounter: 12/12/17 Time of Encounter: 11:30 - Discharge Diagnosis (1) Closed left hip fracture Priority: Primary Status: Acute Qualifiers: Encounter type: subsequent encounter Fracture healing: with routine healing Qualified Code(s): S72.002D - Fracture of unspecified part of neck of left femur, subsequent encounter for closed fracture with routine healing (2) DVT prophylaxis Priority: Primary Status: Acute (3) Depression with anxiety Priority: Secondary Status: Chronic (4) GERD without esophagitis Priority: Secondary Status: Chronic (5) UTI (urinary tract infection) Priority: Primary Status: Acute Qualifiers: Urinary tract infection type: acute cystitis Hematuria presence: without hematuria Qualified Code(s): N30.00 - Acute cystitis without hematuria (6) Hypothyroidism Priority: Secondary Status: Chronic Qualifiers: Hypothyroidism type: unspecified Qualified Code(s): E03.9 - Hypothyroidism , unspecified Hospital course: Ms. Srivastava is a 72 year old female with the above medical problems, who presented with left hip pain status post mechanical fall. Left hip x-ray showed no fracture, however MRA left hip showed acute nondisplaced fracture of left femoral greater trochanter. Orthopedic surgery was consulted, patient underwent intramedullary nailing of left hip on 12/09/2017. Physical and occupational therapy evaluation recommended ECF placement, patient is currently medically stable for discharge. She is being sent on 2 weeks of DVT prophylaxis with subcutaneous Lovenox. Preliminary urine culture grows Aerococcus, patient received 3 days of IV Rocephin, is being discharged on Omnicef. Discharge discussed with: patient, nurse - Time Spent with Patient Total time spent providing and/or coordinating discharge services: Greater than 30 minutes (40 min) - Discharge Medications Prescriptions: HYDROcodone/Acet 5/325 mg [[place] 5-325 mg] 2 tab PO Q6HR PRN 5 Days #20 tablet PRN Reason: Severe Pain Enoxaparin [Lovenox] 30 mg SQ Q12HCO #23 syringe Cefdinir [Omnicef] 300 mg PO BID #4 capsule Gabapentin [Neurontin] 600 mg PO BID #10 tablet Home Medications: Alendronate Sodium 70 mg PO MO 12/08/17 [History] Escitalopram [Lexapro] 20 mg PO QPM 12/08/17 [History] Megestrol Acetate [Megace] 40 mg PO BID 12/08/17 [History] Mirtazapine [Remeron] 15 mg PO HS 12/08/17 [History] Multivit-Min/FA/Lycopen/Lutein [Centrum Silver Tablet] 1 tab PO DAILY 12/08/17 [ History] Ranitidine HCl [Heartburn Relief] 150 mg PO BID 12/08/17 [History] Solifenacin Succinate [Vesicare] 5 mg PO DAILY 12/08/17 [History] Cefdinir [Omnicef] 300 mg PO BID #4 capsule 12/12/17 [Rx] Enoxaparin [Lovenox] 30 mg SQ Q12HCO #23 syringe 12/12/17 [Rx] Gabapentin [Neurontin] 600 mg PO BID #10 tablet 12/12/17 [Rx] HYDROcodone/Acet 5/325 mg [[place] 5-325 mg] 2 tab PO Q6HR PRN 5 Days #20 tablet 12/12/17 [Rx] Allergies/Adverse Reactions: 3 Allergy/AdvReac Type Severity Reaction Status Date / Time meperidine [From Demerol] Allergy Hives Verified 12/08/17 11:18 Penicillins Allergy Hives Verified 12/08/17 11:18 milk AdvReac Gastrointestinal Uncoded 12/08/17 11:18 Upset Date of admission: 12/08/17 14:45 Primary care physician: Srini Herrera MD Consults: 12/09/17 17:15 Consult to Occupational Therapy [CONS] Routine Comment: Evaluate, develop and implement POC Reason for Consult: adls Does patient have active BEDREST order?: No Is patient medically & hemodynamically stable?: Yes Consult to Physical Therapy [CONS] Routine Comment: Evaluate, develop and implement POC Reason for Consult: fx Does patient have active BEDREST order?: No Is patient medically & hemodynamically stable?: Yes Consult to Tank Car Inspector [CONS] Routine Reason for SW Consult: dc Discharging clinician: Smiley Cortez Anticipated date of discharge: 12/12/17 - Constitutional Vitals: Temp Pulse Resp BP Pulse Ox 98.4 F 75 16 130/68 97 12/12/17 12:10 12/12/17 12:10 12/12/17 12:10 12/12/17 12:10 12/12/17 12:10 General appearance: Present: A&O X 3, pleasant, answers questions appropriately - Cardiovascular Cardiovascular exam: Present: RRR, +S1, +S2. Absent: diastolic murmur, gallop, rubs, systolic murmur - Patient Status Disposition: Transfer SNF Condition: Fair Functional capacity at discharge: uses cane/walker Overall status at discharge: patient is progressing back to baseline - Discharge Instructions Follow Up With: Srini Herrera MD [Primary Care Provider] - Poli Bernal DO [Non-Partnered Physician] - Additional Instructions: F/up with Orthopedics in 1 week - Diet and Activity Activity: as per physical therapy, wear oxygen at all times (PRN to keep O2 sat> 90%) Diet: low fat, low cholesterol, low salt diet - VTE Documentation of Mechanical Device: Graduated compression elastic hosiery
--- NOTE | 2017-12-12 14:58 | Physician Discharge Referral ---
ExtendedCare Referral Info Transfer To: [facility] Provider in Charge: Smiley Cortez Provider in Charge after Transfer: PCP Institutional Level of Care: Skilled - Diagnosis (1) Closed left hip fracture Priority: Primary Status: Acute (2) DVT prophylaxis Priority: Primary Status: Acute (3) Depression with anxiety Priority: Secondary Status: Chronic (4) GERD without esophagitis Priority: Secondary Status: Chronic (5) UTI (urinary tract infection) Priority: Primary Status: Acute (6) Hypothyroidism Priority: Secondary Status: Chronic Expected Duration of Placement: 3 weeks Prognosis: Fair Aware of Diagnosis: Patient Aware of Prognosis: Patient - Transfer Medications Prescriptions: HYDROcodone/Acet 5/325 mg [[place] 5-325 mg] 2 tab PO Q6HR PRN 5 Days #20 tablet PRN Reason: Severe Pain Enoxaparin [Lovenox] 30 mg SQ Q12HCO #23 syringe Cefdinir [Omnicef] 300 mg PO BID #4 capsule Gabapentin [Neurontin] 600 mg PO BID #10 tablet Home Medications: Alendronate Sodium 70 mg PO MO 12/08/17 [History] Escitalopram [Lexapro] 20 mg PO QPM 12/08/17 [History] Megestrol Acetate [Megace] 40 mg PO BID 12/08/17 [History] Mirtazapine [Remeron] 15 mg PO HS 12/08/17 [History] Multivit-Min/FA/Lycopen/Lutein [Centrum Silver Tablet] 1 tab PO DAILY 12/08/17 [ History] Ranitidine HCl [Heartburn Relief] 150 mg PO BID 12/08/17 [History] Solifenacin Succinate [Vesicare] 5 mg PO DAILY 12/08/17 [History] Cefdinir [Omnicef] 300 mg PO BID #4 capsule 12/12/17 [Rx] Enoxaparin [Lovenox] 30 mg SQ Q12HCO #23 syringe 12/12/17 [Rx] Gabapentin [Neurontin] 600 mg PO BID #10 tablet 12/12/17 [Rx] HYDROcodone/Acet 5/325 mg [[place] 5-325 mg] 2 tab PO Q6HR PRN 5 Days #20 tablet 12/12/17 [Rx] Allergies/Adverse Reactions: 3 Allergy/AdvReac Type Severity Reaction Status Date / Time meperidine [From Demerol] Allergy Hives Verified 12/08/17 11:18 Penicillins Allergy Hives Verified 12/08/17 11:18 milk AdvReac Gastrointestinal Uncoded 12/08/17 11:18 Upset - Respiratory Orders Smoking Cessation: Smoking cessation has been advised. For more information, call the [place] Tobacco Quit Line at 3-594-CKUG-NOW. - Advance Directives Code Status: Full Code - Mobility Orders Ambulate - Rehabiliation Orders Rehab Potential: Fair Rehab Orders: Sternal Precautions, ROM Exercises, Evaluation for Physical Therapy, Evaluation for Occupational Therapy - Diet Orders Cardiac CERTIFICATION: I certify that the transfer of the above named patient to an Extended Care Facility is necessary for the continuing treatment of the diagnosis listed. The above information is true and accurate reflection of patient's current condition. Confidential - Redisclosure prohibited without a patient's written consent.
== END 2017-12-12 17:19 | DRG 481 ==
LOC: EMEROO 08:42 → 3ANU 08:42 → SUATTDRO 14:45 → 3ANU 15:21 → 3NENU 12-09 16:27
PROVIDERS: ADMIT Hospitalist; ATTEND Internal Medicine

== ENCOUNTER 2019-07-30 10:01 | Inpatient (IN) ==
[2019-07-30 11:59] LABS: Bilirubin,Urine Negative (Negative); Blood,Urine Negative (Negative); Clarity,Urine Cloudy (Clear); Color,Urine Yellow (Yellow); Glucose,Urine (UA) Normal (Normal); Ketones,Urine Trace mg/dL (Negative); Leukocyte Esterase,Urine Moderate (Negative); Nitrite,Urine Positive (Negative); PH,Urine 5.5 pH Units (5.0-8.0); Protein,Urine Negative (Neg-Trace); Specific Gravity,Urine 1.027 (1.010-1.025); Urobilinogen,Urine Normal (Normal)
[2019-07-30 12:01] LABS: Bacteria,Urine Many per hpf (None-Few); Squamous Epithelial Cell,Urine Many per lpf (None-Few); WBC,Urine TNTC per hpf (0-3)
[2019-07-30 12:16] LABS: Calcium Oxalate Crystals,Urine Present; Mucus,Urine Few per lpf (Few); Renal Epithelial Cells,Urine Few per hpf (None-Few); Transitional Epi Cells,Urine Few per hpf (None-Few)
[2019-07-30 12:18] LABS: RBC,Urine 0-3 per hpf (0-3)
[2019-07-30] MEDS ORDERED: 0.9 % Sodium Chloride 1,000 ML IV ONE (12:53)
[2019-07-30] MEDS ORDERED: cefTRIAXone 1,000 MG in 0.9 % Sodium Chloride Mini Bag 100 ML IVPB ONE (12:54)
[2019-07-30 12:59] LABS: Basophils % 0.5 %; Eosinophils # 0.1 K/mcL (0.0-0.6); Hematocrit 39.7 % (35.3-44.9); Hemoglobin 12.9 g/dL (11.5-15.4); Immature Granulocytes % 0.3 % (0-4); Lymphocytes # 1.3 K/mcL (0.6-4.6); Lymphocytes % 21.9 %; Mean Corpuscular HGB Conc 32.5 g/dL (31.6-35.5); Mean Corpuscular Hemoglobin 29.3 pg (28.0-33.3); Mean Corpuscular Volume 90.2 fL (83.0-100.0); Mean Platelet Volume 9.9 fL (9.4-12.4); Monocytes # 0.4 K/mcL (0.0-1.3); Monocytes % 6.7 %; Neutrophils # 4.1 K/mcL (1.6-8.9); Platelet Count 197 K/mcL (140-400); Red Cell Distribution Width 13.2 % (11.5-14.5); Segmented Neutrophils % 69.6 %; White Blood Count 5.8 K/mcL (4.3-11.1)
[2019-07-30 13:09] LABS: Prothrombin Time 11.7 Seconds (9.4-12.1)
[2019-07-30] MEDS ORDERED: cefTRIAXone 1,000 MG in Water for inj. (sterile) 10 ML IVP ONE (13:15)
[2019-07-30 13:44] LABS: Alanine Aminotransferase 8 Units/L (7-52); Albumin/Globulin Ratio 1.7 (1.1-2.2); Alkaline Phosphatase 69 Units/L (34-104); Aspartate Amino Transferase 15 Units/L (13-39); BUN/Creatinine Ratio 32 (6-26); Bilirubin,Total 0.4 mg/dL (0.3-1.0); Blood Urea Nitrogen 17 mg/dL (8-23); Calcium 9.9 mg/dL (8.6-10.3); Carbon Dioxide 23 mEq/L (23-29); Chloride 110 mEq/L (98-107); Globulin 2.4 g/dL (2.4-3.5); Glucose 105 mg/dL (70-105); Osmolality,Calculated 298 (280-300); Sodium 143 mEq/L (136-145); Total Protein 6.4 g/dL (6.4-8.9); Troponin I < 0.03 ng/mL (< 0.04); eGFR For African Americans > 60 (> 60); eGFR For Non-African Americans > 60 (> 60)
[2019-07-30] MEDS ORDERED: Naloxone 0.4 MG/ML INJ IVP PRN (15:10)
[2019-07-30] MEDS ORDERED: Gadolinium Contrast Agent (WT Based) IV PRN (16:14)
[2019-07-30 17:24] LABS: Folate 13.4 ng/mL (3.0-16.0)
[2019-07-30] MEDS: Aspirin Enteric Coated 81 MG Tablet PO SCH (18:10)
[2019-07-30] MEDS ORDERED: Acetaminophen 325 MG TABLET PO ONE (21:19)
[2019-07-31] MEDS: Aspirin Enteric Coated 81 MG Tablet PO SCH (08:02)
[2019-07-31] MEDS: cefTRIAXone 1,000 MG in Water for inj. (sterile) 10 ML IVP SCH (12:16)
[2019-07-31] MEDS: *HR* Heparin 5,000 UNIT/ML VIAL SQ SCH (18:07)
[2019-07-31] MEDS: ARIPiprazole 5 MG TABLET PO SCH (20:46)
[2019-07-31] MEDS: Mirtazapine 15 MG TABLET PO SCH (20:47)
[2019-07-31] MEDS: Gabapentin 300 MG CAPSULE PO SCH (20:47)
[2019-07-31] MEDS: Famotidine 20 MG TABLET PO SCH (20:47)
[2019-08-01 05:01] LABS: Hemoglobin 12.4 g/dL (11.5-15.4); Mean Corpuscular HGB Conc 32.6 g/dL (31.6-35.5); Mean Corpuscular Hemoglobin 28.4 pg (28.0-33.3); Mean Platelet Volume 10.1 fL (9.4-12.4); Platelet Count 208 K/mcL (140-400); Red Blood Count 4.37 M/mcL (3.82-4.97); White Blood Count 5.7 K/mcL (4.3-11.1)
[2019-08-01] MEDS: *HR* Heparin 5,000 UNIT/ML VIAL SQ SCH ×2 (05:10→17:48)
[2019-08-01 05:23] LABS: BUN/Creatinine Ratio 29 (6-26); Blood Urea Nitrogen 18 mg/dL (8-23); Calcium 9.5 mg/dL (8.6-10.3); Carbon Dioxide 26 mEq/L (23-29); Chloride 109 mEq/L (98-107); Glucose 86 mg/dL (70-105); Osmolality,Calculated 295 (280-300); Potassium 3.9 mEq/L (3.5-5.1); Sodium 142 mEq/L (136-145); eGFR For African Americans > 60 (> 60); eGFR For Non-African Americans > 60 (> 60)
[2019-08-01] MEDS: Famotidine 20 MG TABLET PO SCH ×2 (08:10→20:05)
[2019-08-01] MEDS: Gabapentin 300 MG CAPSULE PO SCH ×2 (08:10→20:05)
[2019-08-01] MEDS: cefTRIAXone 1,000 MG in Water for inj. (sterile) 10 ML IVP SCH (08:11)
[2019-08-01] MEDS: Aspirin Enteric Coated 81 MG Tablet PO SCH (08:11)
[2019-08-01] MEDS: Carbidopa/Levodopa 25/100 TABLET PO SCH (20:05)
[2019-08-01] MEDS: ARIPiprazole 5 MG TABLET PO SCH (20:05)
[2019-08-01] MEDS: Acetaminophen 325 MG TABLET PO PRN (20:05)
[2019-08-01] MEDS: Mirtazapine 15 MG TABLET PO SCH (20:05)
[2019-08-02] MEDS: *HR* Heparin 5,000 UNIT/ML VIAL SQ SCH ×2 (05:37→17:20)
[2019-08-02 05:44] LABS: Hematocrit 39.8 % (35.3-44.9); Hemoglobin 12.8 g/dL (11.5-15.4); Mean Corpuscular HGB Conc 32.2 g/dL (31.6-35.5); Mean Corpuscular Volume 90.2 fL (83.0-100.0); Platelet Count 188 K/mcL (140-400); Red Blood Count 4.41 M/mcL (3.82-4.97); Red Cell Distribution Width 13.1 % (11.5-14.5); White Blood Count 5.4 K/mcL (4.3-11.1)
[2019-08-02 06:18] LABS: BUN/Creatinine Ratio 29 (6-26); Blood Urea Nitrogen 17 mg/dL (8-23); Calcium 9.6 mg/dL (8.6-10.3); Carbon Dioxide 27 mEq/L (23-29); Chloride 104 mEq/L (98-107); Glucose 97 mg/dL (70-105); Osmolality,Calculated 293 (280-300); Potassium 3.9 mEq/L (3.5-5.1); Sodium 141 mEq/L (136-145); eGFR For African Americans > 60 (> 60); eGFR For Non-African Americans > 60 (> 60)
[2019-08-02] MEDS: Gabapentin 300 MG CAPSULE PO SCH ×2 (08:12→22:01)
[2019-08-02] MEDS: Carbidopa/Levodopa 25/100 TABLET PO SCH ×2 (08:12→22:01)
[2019-08-02] MEDS: Famotidine 20 MG TABLET PO SCH ×2 (08:12→22:01)
[2019-08-02] MEDS: Aspirin Enteric Coated 81 MG Tablet PO SCH (08:12)
[2019-08-02] MEDS: cefTRIAXone 1,000 MG in Water for inj. (sterile) 10 ML IVP SCH (08:12)
[2019-08-02] MEDS: Acetaminophen 325 MG TABLET PO PRN ×2 (08:12→22:01)
[2019-08-02] MEDS: Mirtazapine 15 MG TABLET PO SCH (22:01)
[2019-08-02] MEDS: ARIPiprazole 5 MG TABLET PO SCH (22:01)
[2019-08-03] MEDS: *HR* Heparin 5,000 UNIT/ML VIAL SQ SCH ×2 (05:34→17:57)
[2019-08-03 07:51] LABS: Hematocrit 39.4 % (35.3-44.9); Hemoglobin 12.5 g/dL (11.5-15.4); Mean Corpuscular HGB Conc 31.7 g/dL (31.6-35.5); Mean Corpuscular Hemoglobin 28.7 pg (28.0-33.3); Mean Corpuscular Volume 90.4 fL (83.0-100.0); Mean Platelet Volume 9.8 fL (9.4-12.4); Platelet Count 187 K/mcL (140-400); Red Blood Count 4.36 M/mcL (3.82-4.97); Red Cell Distribution Width 13.1 % (11.5-14.5); White Blood Count 4.9 K/mcL (4.3-11.1)
[2019-08-03 08:10] LABS: BUN/Creatinine Ratio 30 (6-26); Blood Urea Nitrogen 16 mg/dL (8-23); Calcium 9.5 mg/dL (8.6-10.3); Carbon Dioxide 27 mEq/L (23-29); Chloride 105 mEq/L (98-107); Glucose 107 mg/dL (70-105); Osmolality,Calculated 294 (280-300); Potassium 3.8 mEq/L (3.5-5.1); Sodium 141 mEq/L (136-145); eGFR For African Americans > 60 (> 60); eGFR For Non-African Americans > 60 (> 60)
[2019-08-03] MEDS: Famotidine 20 MG TABLET PO SCH ×2 (08:56→19:56)
[2019-08-03] MEDS: cefTRIAXone 1,000 MG in Water for inj. (sterile) 10 ML IVP SCH (08:56)
[2019-08-03] MEDS: Carbidopa/Levodopa 25/100 TABLET PO SCH ×3 (08:56→19:56)
[2019-08-03] MEDS: Aspirin Enteric Coated 81 MG Tablet PO SCH (08:56)
[2019-08-03] MEDS: Gabapentin 300 MG CAPSULE PO SCH ×2 (08:56→19:56)
[2019-08-03] MEDS: Acetaminophen 325 MG TABLET PO PRN ×2 (08:56→17:59)
[2019-08-03] MEDS: ARIPiprazole 5 MG TABLET PO SCH (19:56)
[2019-08-03] MEDS: Mirtazapine 15 MG TABLET PO SCH (21:22)
[2019-08-04 05:15] LABS: Hematocrit 39.7 % (35.3-44.9); Hemoglobin 13.1 g/dL (11.5-15.4); Mean Corpuscular Hemoglobin 28.9 pg (28.0-33.3); Mean Corpuscular Volume 87.4 fL (83.0-100.0); Mean Platelet Volume 10.1 fL (9.4-12.4); Platelet Count 207 K/mcL (140-400); Red Blood Count 4.54 M/mcL (3.82-4.97); Red Cell Distribution Width 13.3 % (11.5-14.5); White Blood Count 5.8 K/mcL (4.3-11.1)
[2019-08-04] MEDS: *HR* Heparin 5,000 UNIT/ML VIAL SQ SCH ×2 (05:50→17:20)
[2019-08-04] MEDS: Aspirin Enteric Coated 81 MG Tablet PO SCH (07:48)
[2019-08-04] MEDS: Famotidine 20 MG TABLET PO SCH ×2 (07:48→21:04)
[2019-08-04] MEDS: Carbidopa/Levodopa 25/100 TABLET PO SCH ×3 (07:48→21:04)
[2019-08-04] MEDS: Acetaminophen 325 MG TABLET PO PRN (07:48)
[2019-08-04] MEDS: Gabapentin 300 MG CAPSULE PO SCH ×2 (07:48→21:04)
[2019-08-04] MEDS: cefTRIAXone 1,000 MG in Water for inj. (sterile) 10 ML IVP SCH (07:51)
[2019-08-04] MEDS ORDERED: Ondansetron 4 MG/2 ML VIAL IVP ONE (09:50)
[2019-08-04] MEDS: Mirtazapine 15 MG TABLET PO SCH (21:04)
[2019-08-04] MEDS: ARIPiprazole 5 MG TABLET PO SCH (21:04)
[2019-08-05 04:24] LABS: Hematocrit 40.7 % (35.3-44.9); Hemoglobin 12.8 g/dL (11.5-15.4); Mean Corpuscular HGB Conc 31.4 g/dL (31.6-35.5); Mean Corpuscular Hemoglobin 28.7 pg (28.0-33.3); Mean Corpuscular Volume 91.3 fL (83.0-100.0); Mean Platelet Volume 9.8 fL (9.4-12.4); Platelet Count 179 K/mcL (140-400); Red Blood Count 4.46 M/mcL (3.82-4.97); Red Cell Distribution Width 13.3 % (11.5-14.5)
[2019-08-05] MEDS: *HR* Heparin 5,000 UNIT/ML VIAL SQ SCH (06:13)
[2019-08-05] MEDS: Acetaminophen 325 MG TABLET PO PRN (06:18)
[2019-08-05] MEDS: Aspirin Enteric Coated 81 MG Tablet PO SCH (08:28)
[2019-08-05] MEDS: Gabapentin 300 MG CAPSULE PO SCH (08:28)
[2019-08-05] MEDS: Famotidine 20 MG TABLET PO SCH (08:28)
[2019-08-05] MEDS: cefTRIAXone 1,000 MG in Water for inj. (sterile) 10 ML IVP SCH (08:28)
[2019-08-05] MEDS: Carbidopa/Levodopa 25/100 TABLET PO SCH (08:30)
[2019-08-05 11:25] VITALS: BP 122/56
== END 2019-08-05 13:32 | DRG 57 ==
LOC: EMEROOARM 10:01 → 3BNU 10:01 → SUATTDRO 16:03 → 3BNU 17:09
PROVIDERS: ADMIT Internal Medicine; ATTEND Internal Medicine